=== PATIENT | female | born 1985 | race Caucasian/White ===

== ENCOUNTER 2017-02-02 06:49 | Emergency (ER) | payer MEDICAID, OTHER ==
[~2017-02-02] VITALS: Ht 152.4 cm; Wt 150.0 kg
[~2017-02-02 06:49] MED LIST: ALBU6.7H INH; Z.0.BCPILL PO
[2017-02-02 06:55] VITALS: BP 156/100; PULSE 88; RESP 18; TEMP 99; O2SAT 97
[2017-02-02] MEDS ORDERED: PRED20 PO (07:11)
[2017-02-02] MEDS ORDERED: ZITHTAB PO (07:11)
[2017-02-02] MEDS ORDERED: phenergan w codein PO (07:11)
--- NOTE | 2017-02-02 07:11 | PD ---
HPI Chief Complaint: ENT Complaint Time Seen by Provider: 07:02 Travel History International Travel<30 days: No Contact w/Intl Traveler<30days: No Traveled to known affect area: No History of Present Illness HPI 31-year-old female complains of sore throat coughing congestion. Patient states the symptoms started 2 days ago. Patient states that the cough is persistent and nonproductive. Patient denies any chest pain or shortness of breath. Patient denies any nausea vomiting diarrhea. PFSH Past Medical History Asthma: Yes Cancer: No Diabetes: No Diminished Hearing: No Hepatitis: No Hiatal Hernia: No Hypertension: No Respiratory: Yes (EXERCISE INDUCED-ASTHMA) Immunizations Current: Yes Thyroid Disease: No Influenza Vaccination: No ?: Not : 2 Para: 1 Past Surgical History Oral Surgery: Yes (T & A) Pacemaker: No Tonsillectomy: Yes Social History Alcohol Use: No Tobacco Use: No Substance Use: No Allergies-Medications (Allergen,Severity, Reaction): Coded Allergies: Theophylline (Verified Allergy, Severe, ANAPHYLAXIS FROM THOEDUR SPRINKLES , 02/02/17) Uncoded Allergies: SAVITA SPRINKLES (Allergy, Severe, 04/12/11) Reported Meds & Prescriptions Reported Meds & Active Scripts Active Review of Systems General / Constitutional: No: Fever Eyes: No: Visual changes HENT: Positive: Sore Throat, No: Headaches Cardiovascular: No: Chest Pain or Discomfort Respiratory: Positive: Cough, No: Shortness of Breath Gastrointestinal: No: Abdominal Pain Genitourinary: No: Dysuria Musculoskeletal: No: Pain Skin: No Rash Neurologic: No: Weakness Psychiatric: No: Depression Endocrine: No: Polydipsia Hematologic/Lymphatic: No: Easy Bruising Physical Exam Narrative GENERAL: Well-nourished, well-developed patient. SKIN: Focused skin assessment warm/dry. HEAD: Normocephalic. EYES: No scleral icterus. No injection or drainage. TM: Clear. Throat: Mild erythematous. NECK: Supple, trachea midline. No JVD. Patient has mild anterior cervical lymphadenopathy. No meningismus CARDIOVASCULAR: Regular rate and rhythm without murmurs, gallops, or rubs. RESPIRATORY: Breath sounds equal bilaterally. No accessory muscle use. GASTROINTESTINAL: Abdomen soft, non-tender, nondistended. MUSCULOSKELETAL: No cyanosis, or edema. BACK: Nontender without obvious deformity. No CVA tenderness. Data Data Last Documented VS Vital Signs Date Time Temp Pulse Resp B/P Pulse Ox O2 Delivery O2 Flow Rate FiO2 02/02/17 06:55 99.0 88 18 156/100 97 Room Air MDM Medical Decision Making Medical Screen Exam Complete: Yes Emergency Medical Condition: Yes Differential Diagnosis Differential diagnosis including otitis media, pharyngitis, bronchitis, pneumonia. Narrative Course 31-year-old female complains of sore throat coughing congestion. Diagnosis Primary Impression: Pharyngitis Qualified Code: J02.9 - Pharyngitis, unspecified etiology Additional Impression: Bronchitis Patient Instructions: General Instructions Additional Instructions: Take medications as directed. Tylenol or ibuprofen for fever and aching pain. Follow-up with personal physician. Return if worse. Med/Other Pt SpecificInfo: Prescription(s) given Scripts Prednisone 20 Mg Tab20 Mg PO BID #10 TAB Prov:Papo Palencia MD 02/02/17 [phenergan w codein] No Conflict Check10 Ml PO Q6HR #120 Prov:Papo Palencia MD 02/02/17 Azithromycin (Zithromax Z-Terence)250 Mg Wtly120 Mg PO DIRECTED #1 DSPK 500 MG (2 tabs) day 1, then 1 tab days 2-5. Prov:Papo Palencia MD 02/02/17 Disposition: 01 DISCHARGE HOME Condition: Stable Papo Palencia MD Feb 02, 2017 07:11
== END 2017-02-02 07:23 | disposition home or self-care (01) ==
LOC: PHED 06:49
DX: J40 Bronchitis, not specified as acute or chronic (principal); J45.909 Unspecified asthma, uncomplicated
CPT/HCPCS: 99283

== ENCOUNTER 2017-09-15 22:54 | Inpatient (IN) | payer MEDICAID ==
[~2017-09-15] VITALS: Ht 152.4 cm; Wt 156.6 kg
[~2017-09-15 22:54] MED LIST changes: -ALBU6.7H INH; +PRED20 PO; -Z.0.BCPILL PO; +ZITHTAB PO; +phenergan w codein PO
[2017-09-15 22:57] VITALS: BP 162/92; PULSE 124; RESP 26; TEMP 97.6; O2SAT 100
[2017-09-16] VITALS (9 sets, daily range): BP systolic 139–169; BP diastolic 78–94; PULSE 88–107; RESP 18–25; TEMP 98.3–98.5; O2SAT 97–100
--- NOTE | 2017-09-16 00:13 | PD ---
HPI Chief Complaint: Respiratory Symptoms Time Seen by Provider: 00:12 Travel History International Travel<30 days: No Contact w/Intl Traveler<30days: No Traveled to known affect area: No History of Present Illness HPI 32-year-old female came to the emergency room with history of shortness of breath. Patient says that from 9:30 PM she has been feeling like she cannot catch breath. She is also complaining is of some lower back pain. Patient has history of asthma. Oxygen saturation was 100% on room air. Her to be anxious and in some distress. There is no radiation of the lower back pain. No aggravating or relieving factors. Patient says that earlier when she was in the waiting room she started having some chills. She recently found out that she is . Her last menstrual cycle was July 31. Patient is A0. No history of vaginal discharge or spotting. No history of abdominal cramps. Her bedside blood glucose was 135. PFSH Past Medical History Narrative Medical List of her past medical, surgical, social and family history is reviewed from the nursing note. Asthma: Yes Cancer: No Diabetes: No Diminished Hearing: No Hepatitis: No Hiatal Hernia: No Hypertension: No Respiratory: Yes (EXERCISE INDUCED-ASTHMA) Immunizations Current: Yes Thyroid Disease: No ?: LMP: 07/29/17 : 2 Para: 1 Past Surgical History Oral Surgery: Yes (T & A) Pacemaker: No Tonsillectomy: Yes (T&A) Other Surgery: Yes (LEAP PROCEDURE) Social History Alcohol Use: No Tobacco Use: No Substance Use: No Allergies-Medications (Allergen,Severity, Reaction): Coded Allergies: theophylline (Unverified Allergy, Severe, ANAPHYLAXIS FROM THOEDUR SPRINKLES, 09/16/17) Uncoded Allergies: SAVITA SPRINKLES (Allergy, Severe, 04/12/11) Comments List of her allergies reviewed from the nursing note. Reported Meds & Prescriptions Reported Meds & Active Scripts Active No Active Prescriptions or Reported Medications Narrative Medication List of her home medications reviewed from the nursing note. Review of Systems Except as stated in HPI: all other systems reviewed are Neg Respiratory: Positive: Shortness of Breath Musculoskeletal: Positive: Pain Physical Exam Narrative GENERAL: Morbidly obese, anxious, moderate distress SKIN: Focused skin assessment warm/dry. HEAD: Atraumatic. Normocephalic. EYES: Pupils equal and round. No scleral icterus. No injection or drainage. ENT: No nasal bleeding or discharge. Mucous membranes pink and moist. NECK: Trachea midline. No JVD. CARDIOVASCULAR: Regular rate and rhythm. No murmur appreciated. RESPIRATORY: No accessory muscle use. Clear to auscultation. Breath sounds equal bilaterally. GASTROINTESTINAL: Abdomen soft, non-tender, nondistended. Hepatic and splenic margins not palpable. MUSCULOSKELETAL: No obvious deformities. No clubbing. No cyanosis. No edema. NEUROLOGICAL: Awake and alert. No obvious cranial nerve deficits. Motor grossly within normal limits. Normal speech. PSYCHIATRIC: Appropriate mood and affect; insight and judgment normal. Data Data Last Documented VS Vital Signs Date Time Temp Pulse Resp B/P (MAP) Pulse Ox O2 Delivery O2 Flow Rate FiO2 09/16/17 01:08 102 20 162/78 (106) 98 Room Air 09/15/17 22:57 97.6 Orders Orders Sepsis Workup Initiated (09/16/17 ) Complete Blood Count With Diff (09/16/17 00:20) Comprehensive Metabolic Panel (09/16/17 00:20) Lactic Acid Sepsis Protocol (09/16/17 00:20) Urinalysis - C+S If Indicated (09/16/17 00:20) Blood Culture (09/16/17 00:20) Blood Glucose (09/16/17 00:20) Ecg Monitoring (09/16/17 00:20) Iv Access Insert/Monitor (09/16/17 00:20) Oximetry (09/16/17 00:20) Oxygen Administration (09/16/17 00:20) Urine Culture (09/16/17 00:50) Sodium Chlor 0.9% 1000 Ml Inj (Ns 1000 M (09/16/17 01:30) Ceftriaxone Inj (Rocephin Inj) (09/16/17 01:30) Piperacil-Tazo 4.5 Gm Premix (Zosyn 4.5 (09/16/17 01:45) Vancomycin Inj (Vancomycin Inj) (09/16/17 01:45) Ed Discharge Order (09/16/17 01:48) Admit Order (Ed Use Only) (09/16/17 01:49) Labs Laboratory Tests Test 09/16/17 00:50 White Blood Count 9.8 TH/MM3 Red Blood Count 3.84 MIL/MM3 Hemoglobin 11.7 GM/DL Hematocrit 35.2 % Mean Corpuscular Volume 91.7 FL Mean Corpuscular Hemoglobin 30.5 PG Mean Corpuscular Hemoglobin Concent 33.3 % Red Cell Distribution Width 15.9 % Platelet Count 236 TH/MM3 Mean Platelet Volume 9.6 FL Neutrophils (%) (Auto) 78.8 % Lymphocytes (%) (Auto) 14.8 % Monocytes (%) (Auto) 4.9 % Eosinophils (%) (Auto) 0.5 % Basophils (%) (Auto) 1.0 % Neutrophils # (Auto) 7.7 TH/MM3 Lymphocytes # (Auto) 1.5 TH/MM3 Monocytes # (Auto) 0.5 TH/MM3 Eosinophils # (Auto) 0.0 TH/MM3 Basophils # (Auto) 0.1 TH/MM3 CBC Comment AUTO DIFF Urine Color LIGHT-YELLOW Urine Turbidity HAZY Urine pH 6.5 Urine Specific [place] 1.009 Urine Protein NEG mg/dL Urine Glucose (UA) NEG mg/dL Urine Ketones 10 mg/dL Urine Occult Blood NEG Urine Nitrite NEG Urine Bilirubin NEG Urine Urobilinogen LESS THAN 2.0 MG/DL Urine Leukocyte Esterase LARGE Urine RBC 1 /hpf Urine WBC 14 /hpf Urine Squamous Epithelial Cells 2 /hpf Urine Bacteria RARE /hpf Urine Mucus FEW /lpf Microscopic Urinalysis Comment CATH-CULTURE IND Blood Urea Nitrogen 9 MG/DL Creatinine 0.69 MG/DL Random Glucose 148 MG/DL Total Protein 7.2 GM/DL Albumin 3.1 GM/DL Calcium Level 8.5 MG/DL Alkaline Phosphatase 51 U/L Aspartate Amino Transf (AST/SGOT) 17 U/L Alanine Aminotransferase (ALT/SGPT) 29 U/L Total Bilirubin 0.2 MG/DL Sodium Level 138 MEQ/L Potassium Level 3.3 MEQ/L Chloride Level 104 MEQ/L Carbon Dioxide Level 23.0 MEQ/L Anion Gap 11 MEQ/L Estimat Glomerular Filtration Rate 99 ML/MIN Lactic Acid Level 2.8 mmol/L [facility] Medical Decision Making Medical Screen Exam Complete: Yes Emergency Medical Condition: Yes Medical Record Reviewed: Yes Differential Diagnosis DKA, sepsis, pyelonephritis Narrative Course 1:55 AM blood test results of back and lactic acid is elevated. UA suggestive of UTI. I've given her IV fluid and IV vancomycin and Zosyn. These are compatible with . I spoke with the hospitalist and admitted the patient for sepsis. In my opinion her shortness of breath is secondary to the infection. Her potassium is mildly low and I'll replace it with oral potassium. Critical Care Narrative Aggregate critical care time was 30 minutes. Time to perform other separately billable procedures was not included in the critical care time. My time did not include minutes spent treating any other patients simultaneously or on activities that did not directly contribute to the patient's treatment. The services I provided to this patient were to treat and/or prevent clinically significant deterioration that could result in: Sepsis, sepsis protocol I provided critical care services requiring my management, as noted below: Chart data review, documentation time, medication orders and management, vital sign assessments/reviewing monitor data, ordering and reviewing lab tests, ordering and interpreting/reviewing x-rays and diagnostic studies, care of the patient and discussion of the patient with the admitting physicians. Procedures EKG Prior to Arrival: No Diagnosis Primary Impression: Sepsis Qualified Codes: A41.9 - Sepsis, unspecified organism Additional Impressions: UTI (urinary tract infection) Qualified Codes: N39.0 - Urinary tract infection, site not specified Morbidly obese First trimester Hypokalemia Hyperventilation Admitting Information Admitting Physician Requests: Admit Scripts No Active Prescriptions or Reported Meds Corrine Douglas MD Sep 16, 2017 00:13
[2017-09-16 01:08] LABS: AUTOMATED NEUTROPHIL # 7.7 TH/MM3 (1.8-7.7); BASOPHIL # 0.1 TH/MM3 (0-0.2); EOSINOPHIL % 0.5 % (0.0-4.0); HEMATOCRIT 35.2 % (35.0-46.0); LYMPH % 14.8 % (9.0-44.0); LYMPHOCYTE # 1.5 TH/MM3 (1.0-4.8); MEAN CELL VOLUME 91.7 FL (80.0-100.0); MEAN CORPUSCULAR HEMOGLOBIN 30.5 PG (27.0-34.0); MEAN CORPUSCULAR HGB CONC 33.3 % (32.0-36.0); MONO % 4.9 % (0.0-8.0); NEUT % 78.8 % (16.0-70.0); PLATELET COUNT 236 TH/MM3 (150-450); RED BLOOD COUNT 3.84 MIL/MM3 (4.00-5.30); RED CELL DISTRIBUTION WIDTH 15.9 % (11.6-17.2); WHITE BLOOD COUNT 9.8 TH/MM3 (4.0-11.0)
[2017-09-16 01:12] LABS: BACTERIA, URINE RARE /hpf; BLOOD, URINE NEG (NEG); GLUCOSE,URINE NEG (NEG); KETONE, URINE 10 mg/dL (NEG); MUCUS URINE FEW /lpf (OCC); NITRITE,URINE NEG (NEG); PH, URINE 6.5 (5.0-8.5); SQUAMOUS EPITHELIAL CELL URINE 2 /hpf (0-5); URINE COLOR LIGHT-YELLOW (YELLW/STRAW)
[2017-09-16 01:13] LABS: COMMENT (UR) CATH-CULTURE IND; CULTURE IF INDICATED CATH CULTURE IND
[2017-09-16 01:22] LABS: HEMO FLAGS AUTO DIFF
[2017-09-16 01:26] LABS: ALT (GPT) 29 U/L (10-53); ANION GAP 11 MEQ/L (5-15); AST (GOT) 17 U/L (15-37); BLOOD UREA NITROGEN 9 MG/DL (7-18); CHLORIDE 104 MEQ/L (98-107); GLOMERULAR FILTRATION RATE 99 ML/MIN (>89); POTASSIUM 3.3 MEQ/L (3.5-5.1); SODIUM (NA) 138 MEQ/L (136-145)
[2017-09-16 01:28] LABS: ALKALINE PHOSPHATASE 51 U/L (45-117); TOTAL BILIRUBIN ADULT 0.2 MG/DL (0.2-1.0)
[2017-09-16] MEDS ORDERED: SODIUM CHLOR 0.9% 1000 ML INJ 1,000 ML IV ONE (01:30)
[2017-09-16] MEDS ORDERED: cefTRIAXone INJ 1,000 MG in SODIUM CHLORIDE 0.9% INJ 100 ML IV ONE (01:30)
[2017-09-16] MEDS ORDERED: VANCOMYCIN INJ 1,000 MG in SODIUM CHLOR 0.9% 250 ML INJ 250 ML IV ONE (01:45)
[2017-09-16] MEDS ORDERED: PIPERACIL-TAZO 4.5 GM PREMIX 100 ML IV ONE (01:45)
[2017-09-16] MEDS ORDERED: POTASSIUM CHLORIDE 20 MEQ CONTROLLED RELEASE TAB PO ONE (02:00)
[2017-09-16] MEDS ORDERED: SODIUM CHLORIDE 0.9% FLUSH 10 ML FLUSH IV FLUSH PRN (02:30)
[2017-09-16] MEDS ORDERED: NALOXONE HCL 0.4 MG/ML AMP IV PUSH PRN (02:30)
[2017-09-16] MEDS ORDERED: ACETAMINOPHEN 325 MG TAB PO PRN (02:30)
[2017-09-16 03:00] LABS: LACTIC ACID GHOST NOT REPORTABLE
[2017-09-16 03:38] LABS: BANDS 12 % (0-6); NEUTROPHIL # MANUAL DIFF 8.7 TH/MM3 (1.8-7.7); PLATELET ESTIMATE SMEAR NORMAL (NORMAL); PLATELET MORPHOLOGY ENLARGED (NORMAL); POLYS (SEG NEUTROPHILS) 77 % (16-70); SCAN/DIFF FINAL DIFF MANUAL; TOXIC GRANULATION 1+ (NORMAL); WBC DIFF SAMPLE 100
[2017-09-16] MEDS: SODIUM CHLOR 0.9% 1000 ML INJ 1,000 ML IV SCH (05:33)
--- NOTE | 2017-09-16 07:59 | PD.CONS ---
HPI Travel History International Travel<30 Days: No Contact w/Intl Traveler<30Days: No Known Affected Area: No History of Present Illness HPI The patient is a 32-year-old G3 P 2002 at gestational age of approximately 6 weeks by her last menstrual period of 07/29/17. She reports this is an unplanned and she feels somewhat equivocal based on her health. She states that she desires the as long as it can be safe for her and the baby. The patient presented to the emergency room with a history of shortness of breath. She reports this began on September 09 with mild and intermittent shortness of breath feeling like it was challenging to catch her breath. She reports that her symptoms worsen 2 days ago but actually 9:30 last night she has been had been feeling like she was not able to catch her breath and it was significantly more difficult to breathe. She does have a history of childhood asthma and exercise-induced asthma. She is also complaining of lower back pain that been going on for a week with mild relief with Tylenol. She also reports that she had shakes on her way here but denies any fevers at home. Per the ED record upon patient's arrival her oxygen saturation was 100% on room air. She was noted to be anxious in some distress. At this time the patient denies any significant difficulty in breathing. She denies fevers or chills. She denies vaginal discharge or bleeding. She denies any abdominal pain or cramping. She denies any urinary symptoms, painful urination, urinary frequency, or an odor to her urine. She does report she had a mild upper respiratory infection about 2 weeks ago. She reports she is not yet had an ultrasound to confirm the . 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 The patient denies any sexually transmitted infections Past Surgical History Narrative Surgical T&A LEEP 2011 Family History Narrative Family History DM HTN TIA Pancreatic cancer Social History Alcohol Use: No Tobacco Use: No Substance Abuse: No Allergies-Medications (Allergen,Severity, Reaction): Coded Allergies: theophylline (Unverified Allergy, Severe, ANAPHYLAXIS FROM THOEDUR SPRINKLES, 09/16/17) Uncoded Allergies: SAVITA SPRINKLES (Allergy, Severe, 04/12/11) Home Meds Discontinued Scripts Prednisone (Prednisone) 20 Mg Tab, 20 MG PO BID, #10 TAB Prov:Papo Palencia MD 02/02/17 [phenergan w codein] No Conflict Check, 10 ML PO Q6HR for Cough, #120 Prov:Papo Palencia MD 02/02/17 Azithromycin (Zithromax Z-Terence) 250 Mg Dspk, 250 MG PO DIRECTED for Infection , #1 DSPK 500 MG (2 tabs) day 1, then 1 tab days 2-5. Prov:Papo Palencia MD 02/02/17 Review of Systems Except as stated in HPI: all other systems reviewed are Neg Respiratory: Other (reports shortness of breath upon arrival however denies significant shortness of breath at this time) Musculoskeletal: Other (lower back pain) Physical Exam Vital Signs Date Time Temp Pulse Resp B/P (MAP) Pulse Ox O2 Delivery O2 Flow Rate FiO2 09/16/17 02:58 107 18 148/89 (108) 98 Room Air 09/16/17 01:08 102 20 162/78 (106) 98 Room Air 09/15/17 22:57 97.6 124 26 162/92 (115) 100 Narrative GENERAL: Well-nourished, well-developed patient. SKIN: Warm and dry. HEAD: Normocephalic and atraumatic. EYES: No scleral icterus. No injection or drainage. ENT: No nasal drainage noted. Mucous membranes pink. Airway patent. NECK: Supple, trachea midline. No JVD. CARDIOVASCULAR: Regular rate and rhythm without murmurs, gallops, or rubs. RESPIRATORY: Breath sounds equal bilaterally. No accessory muscle use. No crackles or rales noted BREASTS: Deferred ABDOMEN/GI: Abdomen soft, non-tender, bowel sounds present, no rebound, no guarding . Obese GENITOURINARY: Deferred EXTREMITIES: No cyanosis or edema. BACK: Nontender without obvious deformity. No CVA tenderness. NEUROLOGICAL: Awake and alert. Motor and sensory grossly within normal limits. Five out of 5 muscle strength in all muscle groups. Normal speech. Psychiatric: Grossly normal memory and affect Musculoskeletal: Grossly normal range of motion, gait, muscle strength Data Data Orders Orders Sepsis Workup Initiated (09/16/17 ) Complete Blood Count With Diff (09/16/17 00:20) Comprehensive Metabolic Panel (09/16/17 00:20) Lactic Acid Sepsis Protocol (09/16/17 00:20) Urinalysis - C+S If Indicated (09/16/17 00:20) Blood Culture (09/16/17 00:20) Blood Glucose (09/16/17 00:20) Ecg Monitoring (09/16/17 00:20) Iv Access Insert/Monitor (09/16/17 00:20) Oximetry (09/16/17 00:20) Oxygen Administration (09/16/17 00:20) Urine Culture (09/16/17 00:50) Sodium Chlor 0.9% 1000 Ml Inj (Ns 1000 M (09/16/17 01:30) Ceftriaxone Inj (Rocephin Inj) (09/16/17 01:30) Piperacil-Tazo 4.5 Gm Premix (Zosyn 4.5 (09/16/17 01:45) Vancomycin Inj (Vancomycin Inj) (09/16/17 01:45) Admit Order (Ed Use Only) (09/16/17 01:49) Potassium Chloride (Kcl) (09/16/17 02:00) Admit To Inpatient (09/16/17 ) Vital Signs (Adult) Q4H (09/16/17 02:25) Activity Bed Rest (09/16/17 02:25) Belt Conveyor Drier / Telemetry .CONTINUOUS (09/16/17 02:25) Diet Regular Basic (09/16/17 Breakfast) Sodium Chlor 0.9% 1000 Ml Inj (Ns 1000 M (09/16/17 02:25) Sodium Chloride 0.9% Flush (Ns Flush) (09/16/17 02:30) Sodium Chloride 0.9% Flush (Ns Flush) (09/16/17 09:00) Acetaminophen (Tylenol) (09/16/17 02:30) Basic Metabolic Panel (Bmp) (09/17/17 06:00) Complete Blood Count With Diff (09/17/17 06:00) Scd Bilateral/Knee High SHERRY.BID (09/16/17 02:25) Speedy Bilateral/Knee High SHERRY.QSHIFT (09/16/17 02:25) Naloxone Inj (Narcan Inj) (09/16/17 02:30) Inpatient Certification (09/16/17 ) Lactic Acid Sepsis Protocol (09/16/17 02:28) [place]-Iron Prenat ([place] (09/16/17 09:00) Piperacil-Tazo 3.375 Gm Premix (Zosyn 3. (09/16/17 09:00) Consult Obstetrics (09/16/17 02:34) Physician Name Changes (09/16/17 ) (Hub Use Only)Inp Phy Cons/Ref (09/16/17 ) Us Pelvis Comp W Transvaginal (09/16/17 ) Labs Laboratory Tests Test 09/16/17 00:50 09/16/17 02:55 White Blood Count 9.8 Red Blood Count 3.84 Hemoglobin 11.7 Hematocrit 35.2 Mean Corpuscular Volume 91.7 Mean Corpuscular Hemoglobin 30.5 Mean Corpuscular Hemoglobin Concent 33.3 Red Cell Distribution Width 15.9 Platelet Count 236 Mean Platelet Volume 9.6 Neutrophils (%) (Auto) 78.8 Lymphocytes (%) (Auto) 14.8 Monocytes (%) (Auto) 4.9 Eosinophils (%) (Auto) 0.5 Basophils (%) (Auto) 1.0 Neutrophils # (Auto) 7.7 Lymphocytes # (Auto) 1.5 Monocytes # (Auto) 0.5 Eosinophils # (Auto) 0.0 Basophils # (Auto) 0.1 CBC Comment AUTO DIFF Differential Total Cells Counted 100 Neutrophils % (Manual) 77 Band Neutrophils % 12 Lymphocytes % 8 Monocytes % 3 Neutrophils # (Manual) 8.7 Differential Comment FINAL DIFF MANUAL Toxic Granulation 1+ Platelet Estimate NORMAL Platelet Morphology Comment ENLARGED Urine Color LIGHT-YELLOW Urine Turbidity HAZY Urine pH 6.5 Urine Specific [place] 1.009 Urine Protein NEG Urine Glucose (UA) NEG Urine Ketones 10 Urine Occult Blood NEG Urine Nitrite NEG Urine Bilirubin NEG Urine Urobilinogen LESS THAN 2.0 Urine Leukocyte Esterase LARGE Urine RBC 1 Urine WBC 14 Urine Squamous Epithelial Cells 2 Urine Bacteria RARE Urine Mucus FEW Microscopic Urinalysis Comment CATH-CULTURE IND Blood Urea Nitrogen 9 Creatinine 0.69 Random Glucose 148 Total Protein 7.2 Albumin 3.1 Calcium Level 8.5 Alkaline Phosphatase 51 Aspartate Amino Transf (AST/SGOT) 17 Alanine Aminotransferase (ALT/SGPT) 29 Total Bilirubin 0.2 Sodium Level 138 Potassium Level 3.3 Chloride Level 104 Carbon Dioxide Level 23.0 Anion Gap 11 Estimat Glomerular Filtration Rate 99 Lactic Acid Level 2.8 1.8 Date/Time Source Procedure Growth Status 09/16/17 00:50 Blood Peripheral Aerobic Blood Culture Pending Received 09/16/17 00:50 Blood Peripheral Anaerobic Blood Culture Pending Received 09/16/17 00:50 Urine Catheterized Urine Urine Culture Pending Worksheet [facility] Plan Assessment/plan: 1. Early , unconfirmed by imaging. We'll obtain transvaginal ultrasound to confirm , location, and dating. 2. Suspected pyelonephritis with sepsis: Managed by primary team. Rare bacteria noted on UTI but large leukocyte esterase and white blood cell count. Patient is afebrile, with a normal white blood cell count no evidence of leukocytosis. There is no CVA tenderness on examination. Patient is currently on vancomycin, Rocephin, and Zosyn. Current guidelines for treatment of pyelonephritis in recommend Zosyn 3.375 g IV every 6 hours for severe pyelonephritis other alternatives for severe pyelonephritis included meropenem, ertapenem, or doripenem. Other empiric treatment for nonsevere pyelonephritis would include Rocephin, cefepime, aztreonam, or amp still and gentamicin. Could consider infectious disease consultation for further recommendations if patient's condition is felt to be severe enough to warrant multiple antibiotic therapy. Discussed with patient the risk for acute respiratory distress syndrome as well as later in the risk of an association of pyelonephritis with labor. Would recommend any treatment to include category B medications ideally although category C medications may be used if the potential benefits outweighs the potential risks. Category D medications would not be recommended unless the maternal benefits clearly outweigh the potential teratogenic effects to the fetus. We'll continue to follow with you. 3. History of maternal childhood asthma and exercise-induced asthma 4. Morbid obesity The patient's ED records were reviewed. Thank you for this consultation on this very pleasant lady. We will continue to follow with you. Please call for any issues or concerns as they may arise. Admitting diagnosis: sepsis, UTI Scripts No Active Prescriptions or Reported Hannah Hart MD 15, 2017 07:59
[2017-09-16 08:55] LABS: BETA HCG QUANT 6364 MIU/ML (0-5)
[2017-09-16] MEDS: MULTIVIT/MIN/PREN/FOL AC/IRON PRENATAL TAB PO SCH (09:00)
--- NOTE | 2017-09-16 09:14 | HHI.HP ---
[facility] Service [facility] Primary Care Physician No Primary Care Physician Admission Diagnosis sepsis, UTI Diagnoses: (1) UTI (urinary tract infection) (2) Sepsis (3) First trimester (4) Morbidly obese Chief Complaint: shortness of breath Travel History International Travel<30 Days: No Contact w/Intl Traveler <30 Da: No Traveled to Known Affected Are: No Sepsis Criteria SIRS Criteria (2 or more): Heart rate over 90, RR > 20 or PaCO2 < 32 Sepsis Criteria (SIRS+source): Infect source susp/known Severe Sepsis (+one): Lactate >2 History of Present Illness The patient is a 32 year old female who presented to the emergency department with complaint of dyspnea. She also reports low back pain. She attributed the back pain to prior injury and sciatica, but it has not improved. Denies chest pain, dysuria, nausea, vomiting. She recently found out she was . She has had a positive home test, but has not seen an glazier helper yet. She has not had an ultrasound. She reports her last menstrual period was . Review of Systems Constitutional: DENIES: Fever, Chills, Night Sweats Eyes: DENIES: Blurred vision, Vision loss Ears, nose, mouth, throat: DENIES: Hearing loss Respiratory: COMPLAINS OF: Shortness of breath, DENIES: Cough, Wheezing, Sputum production Cardiovascular: COMPLAINS OF: Dyspnea on Exertion, DENIES: Chest pain, Palpitations, Lower Extremity Edema Gastrointestinal: DENIES: Abdominal pain, Constipation, Diarrhea, Nausea, Vomiting Genitourinary: DENIES: Urinary frequency, Urinary incontinence, Urgency, Hematuria, Dysuria, Nocturia Musculoskeletal: COMPLAINS OF: Back pain, DENIES: Joint pain, Muscle aches Integumentary: DENIES: Pruritus, Rash Hematologic/lymphatic: DENIES: Bruising Neurologic: DENIES: Headache Past Family Social History Past Medical History Asthma Past Surgical History Tonsillectomy LEEP Reported Medications None Allergies: Coded Allergies: theophylline (Unverified Allergy, Severe, ANAPHYLAXIS FROM THOEDUR SPRINKLES, 09/16/17) Uncoded Allergies: SAVITA SPRINKLES (Allergy, Severe, 04/12/11) Family History Diabetes Hypertension Cancer Social History Denies alcohol, tobacco, or illicit drug use. Physical Exam Vital Signs Vital Signs Date Time Temp Pulse Resp B/P (MAP) Pulse Ox O2 Delivery O2 Flow Rate FiO2 09/16/17 07:54 95 18 169/94 (119) 98 Room Air 09/16/17 02:58 107 18 148/89 (108) 98 Room Air 09/16/17 01:08 102 20 162/78 (106) 98 Room Air 09/15/17 22:57 97.6 124 26 162/92 (115) 100 Physical Exam GENERAL: Morbidly obese female in no acute distress. HEENT: Normocephalic, atraumatic. Pupils equal, round and reactive. Extraocular movements intact. No scleral icterus. No injection or drainage. Oropharynx is clear. Mucous membranes are moist. CARDIOVASCULAR: Regular rate and rhythm without murmurs, gallops, or rubs. RESPIRATORY: Clear to auscultation. No wheezes, rales, or rhonchi. Breathing is non-labored. GASTROINTESTINAL: Abdomen soft, non-tender, nondistended. No CVA tenderness. EXTREMITIES: No lower extremity edema. No calf tenderness. PSYCH: Alert and oriented x 3. Laboratory Laboratory Tests Test 09/16/17 00:50 09/16/17 02:55 White Blood Count 9.8 Red Blood Count 3.84 Hemoglobin 11.7 Hematocrit 35.2 Mean Corpuscular Volume 91.7 Mean Corpuscular Hemoglobin 30.5 Mean Corpuscular Hemoglobin Concent 33.3 Red Cell Distribution Width 15.9 Platelet Count 236 Mean Platelet Volume 9.6 Neutrophils (%) (Auto) 78.8 Lymphocytes (%) (Auto) 14.8 Monocytes (%) (Auto) 4.9 Eosinophils (%) (Auto) 0.5 Basophils (%) (Auto) 1.0 Neutrophils # (Auto) 7.7 Lymphocytes # (Auto) 1.5 Monocytes # (Auto) 0.5 Eosinophils # (Auto) 0.0 Basophils # (Auto) 0.1 CBC Comment AUTO DIFF Differential Total Cells Counted 100 Neutrophils % (Manual) 77 Band Neutrophils % 12 Lymphocytes % 8 Monocytes % 3 Neutrophils # (Manual) 8.7 Differential Comment FINAL DIFF MANUAL Toxic Granulation 1+ Platelet Estimate NORMAL Platelet Morphology Comment ENLARGED Urine Color LIGHT-YELLOW Urine Turbidity HAZY Urine pH 6.5 Urine Specific [place] 1.009 Urine Protein NEG Urine Glucose (UA) NEG Urine Ketones 10 Urine Occult Blood NEG Urine Nitrite NEG Urine Bilirubin NEG Urine Urobilinogen LESS THAN 2.0 Urine Leukocyte Esterase LARGE Urine RBC 1 Urine WBC 14 Urine Squamous Epithelial Cells 2 Urine Bacteria RARE Urine Mucus FEW Microscopic Urinalysis Comment CATH-CULTURE IND Blood Urea Nitrogen 9 Creatinine 0.69 Random Glucose 148 Total Protein 7.2 Albumin 3.1 Calcium Level 8.5 Alkaline Phosphatase 51 Aspartate Amino Transf (AST/SGOT) 17 Alanine Aminotransferase (ALT/SGPT) 29 Total Bilirubin 0.2 Sodium Level 138 Potassium Level 3.3 Chloride Level 104 Carbon Dioxide Level 23.0 Anion Gap 11 Estimat Glomerular Filtration Rate 99 Lactic Acid Level 2.8 1.8 Human Chorionic Gonadotropin, Quant [id number] Date/Time Source Procedure Growth Status 09/16/17 00:50 Blood Peripheral Aerobic Blood Culture Pending Received 09/16/17 00:50 Blood Peripheral Anaerobic Blood Culture Pending Received 09/16/17 00:50 Urine Catheterized Urine Urine Culture Pending Worksheet Result Diagram: 09/16/174909/16/1749 Caprini VTE Risk Assessment Caprini VTE Risk Assessment: Mod/High Risk (score >= 2) Caprini Risk Assessment Model Point Value = 1 Point Value = 2 Point Value = 3 Point Value = 5 Age 41-60 Minor surgery BMI > 25 kg/m2 Swollen legs Varicose veins or History of unexplained or recurrent spontaneous Oral contraceptives or hormone replacement Sepsis (< 1 month) Serious lung disease, including pneumonia (< 1 month) Abnormal pulmonary function Acute myocardial infarction Congestive heart failure (< 1 month) History of inflammatory bowel disease Medical patient at bed rest Age 61-74 Arthroscopic surgery Major open surgery (> 45 min) Laparoscopic surgery (> 45 min) Malignancy Confined to bed (> 72 hours) Immobilizing plaster cast Central venous access Age >= 75 History of VTE Family history of VTE Factor V Leiden Prothrombin [id number] Lupus anticoagulant Anticardiolipin antibodies Elevated serum homocysteine Heparin-induced thrombocytopenia Other congenital or acquired thrombophilia Stroke (< 1 month) Elective arthroplasty Hip, pelvis, or leg fracture Acute spinal cord injury (< 1 month) Prophylaxis Regimen Total Risk Factor Score Risk Level Prophylaxis Regimen 0-1 Low Early ambulation 2 Moderate Order ONE of the following: *Sequential Compression Device (SCD) *Heparin 5000 units SQ BID 3-4 Higher Order ONE of the following medications: *Heparin 5000 units SQ TID *Enoxaparin/Lovenox 40 mg SQ daily (WT < 150 kg, CrCl > 30 mL/min) *Enoxaparin/Lovenox 30 mg SQ daily (WT < 150 kg, CrCl > 10-29 mL/min) *Enoxaparin/Lovenox 30 mg SQ BID (WT < 150 kg, CrCl > 30 mL/min) AND/OR *Sequential Compression Device (SCD) 5 or more Highest Order ONE of the following medications: *Heparin 5000 units SQ TID (Preferred with Epidurals) *Enoxaparin/Lovenox 40 mg SQ daily (WT < 150 kg, CrCl > 30 mL/min) *Enoxaparin/Lovenox 30 mg SQ daily (WT < 150 kg, CrCl > 10-29 mL/min) *Enoxaparin/Lovenox 30 mg SQ BID (WT < 150 kg, CrCl > 30 mL/min) AND *Sequential Compression Device (SCD) Assessment and Plan Assessment and Plan 1. Sepsis, UTI, possible pyelonephritis: Continue IV antibiotics, IV fluids. Urine culture is pending. Blood cultures are pending. 2. Early : Appreciate obstetrics recommendations. Ultrasound ordered. Quantitative beta-hCG ordered. vitamin. 3. Asthma: Patient presented with dyspnea, which could be related to infection. Supplemental oxygen as needed. 4. DVT prophylaxis: SCDs, GRANT hose. Problem Qualifiers (1) UTI (urinary tract infection): Qualified Codes: N39.0 - Urinary tract infection, site not specified (2) Sepsis: Qualified Codes: A41.9 - Sepsis, unspecified organism Ashvin Greer MD Sep 16, 2017 09:14
[2017-09-16] MEDS: SODIUM CHLORIDE 0.9% FLUSH 10 ML FLUSH IV FLUSH SCH ×2 (09:54→21:51)
[2017-09-16] MEDS: PIPERACIL-TAZO 3.375 GM PREMIX 50 ML IV SCH ×3 (09:54→21:51)
--- NOTE | 2017-09-16 10:38 | RADRPT ---
EXAM DATE/TIME: 09/16/2017 09:27 [facility] COMPARISON: US PELVIS (QUEST PREG/ECTOPIC) W/TRANSVAG, April 12, 2011, 12:51. INDICATIONS : comfirmation. LAB(S): Beta-hC MEDICAL HISTORY : . Asthma. SURGICAL HISTORY : Tonsillectomy. Adenoidectomy. Leap procedure. ENCOUNTER: Initial ACUITY: 1 day PAIN SCORE: 0/10 LOCATION: Bilateral pelvis MEASUREMENTS: UTERUS: 11.4 x 6.4 x 6.0 cm ENDOMETRIAL STRIPE: 20 mm RIGHT OVARY: 2.3 x 2.4 x 1.8 cm LEFT OVARY: 3.1 x 2.2 x 2.1 cm FREE FLUID: Yes FINDINGS: UTERUS: The examination demonstrates a 0.5 x 0.6 x 0.8 cm fluid collection within the endometrium. There is h ypertrophy of the endometrium. This is felt to represent a gestational sac. This is too small to prov julio accurate dating. No pole or yolk sac is identified. The exam also demonstrates a small hypo echoic area in the endometrial cavity measuring 4.3 x 1.6 x 2.0 cm. This could represent a small amou nt of hemorrhage within the endometrial cavity. RIGHT OVARY: The exam demonstrates a 1.1 x 1.1 x 1.2 cm cystic abnormality in the mid aspect of the ovary. LEFT OVARY: The examination demonstrates a 0.3 x 0.4 x 0.4 cm partially calcified nodule in the left ovary. MISCELLANEOUS: There is a trace amount of free fluid within the pelvis. CONCLUSION: 1. The exam demonstrates what is felt to be a gestational sac within the uterus. This measures 0.5 x 0.6 x 0.8 cm. This is too small to accurately date. No pole is identified. The patient will nee d followup beta and ultrasound as indicated to assess for viability. 2. There is a small amount of fluid within endometrial cavity possibly representing a small amount of hemorrhage. 3. 3 mm calcification in the left ovary. 4. 1.1 x 1.2 cm cyst in the right ovary. German Schneider MD on September 16, 2017 at 10:11 Board Certified Radiologist. This report was verified electronically.
--- NOTE | 2017-09-16 11:19 | HHI.PR ---
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 Linder. Ultrasound showed likely intrauterine gestational sac without pole or yolk sac. Without pole or yolk sac, unable to confirm intrauterine versus ectopic . Thus, we recommend the following: -Repeat ultrasound in a week -Repeat Beta-hCG Quant in 3 days if inpatient or 1 week if outpatient -Treat infection as needed. Treat as if ignoring the except avoid teratogens. Continue IV antibiotics, IV fluids. Urine culture is pending. Blood cultures are pending. -Continue vitamin. d/w Anibal Bowers MD R2 Sep 16, 2017 11:19
[2017-09-16] MEDS ORDERED: CHLORHEXIDINE GLUCONATE 2 % 1 PACK (2 CLOTHS)(extra cloths) TOPICAL PRN ×2 (12:00)
[2017-09-17] VITALS: BP 137/66; PULSE 87; RESP 22; TEMP 97.9; O2SAT 97
[2017-09-17] MEDS: SODIUM CHLOR 0.9% 1000 ML INJ 1,000 ML IV SCH ×3 (01:12→18:34)
[2017-09-17] MEDS: PIPERACIL-TAZO 3.375 GM PREMIX 50 ML IV SCH ×2 (02:56→07:52)
[2017-09-17 04:00] VITALS: BP 131/66; PULSE 90; RESP 24; TEMP 98.1; O2SAT 98
[2017-09-17] MEDS ORDERED: CHLORHEXIDINE GLUCONATE 2 % 1 PACK (2 CLOTHS)(taper/protocol) TOPICAL SCH (04:00)
[2017-09-17] MEDS: MULTIVIT/MIN/PREN/FOL AC/IRON PRENATAL TAB PO SCH (07:53)
[2017-09-17] MEDS: SODIUM CHLORIDE 0.9% FLUSH 10 ML FLUSH IV FLUSH SCH (07:53)
[2017-09-17 08:01] VITALS: BP 143/88; PULSE 88; RESP 18; TEMP 98.4; O2SAT 97
--- NOTE | 2017-09-17 10:13 | HHI.PR ---
Subjective Remarks Follow-up for questionable UTI versus pyelonephritis Patient states she feels a lot better. Denied any abdominal pain or CVA tenderness. Deny any nausea vomiting. She remains afebrile. Looks very comfortable. Objective Vitals Vital Signs Date Time Temp Pulse Resp B/P (MAP) Pulse Ox O2 Delivery O2 Flow Rate FiO2 09/17/17 08:01 98.4 88 18 143/88 (106) 97 09/17/17 04:00 98.1 90 24 131/66 (87) 98 09/17/17 00:00 97.9 87 22 137/66 (89) 97 09/16/17 20:00 98.3 88 22 144/85 (104) 100 09/16/17 16:00 96 09/16/17 15:58 98.5 91 25 139/88 (105) 97 09/16/17 12:00 98 09/16/17 11:23 141/81 (101) I/O 09/16/17 09/16/17 09/16/17 09/17/17 09/17/17 09/17/17 07:00 15:00 23:00 07:00 15:00 23:00 Intake Total 200 ml 1250 ml 996 ml 868 ml Output Total 800 ml 1050 ml Balance 200 ml 1250 ml 196 ml 868 ml -1050 ml Intake IV Total 200 ml 1250 ml 996 ml 868 ml Output Urine Total 800 ml 1050 ml Result Diagram: 09/16/17 0050 09/16/17 0050 Objective Remarks GENERAL: 32-year-old morbidly obese female in no acute distress CARDIOVASCULAR: Regular rate and rhythm without murmurs, gallops, or rubs. RESPIRATORY: Breath sounds equal bilaterally. No accessory muscle use. GASTROINTESTINAL: Abdomen soft, non-tender, nondistended. MUSCULOSKELETAL: No cyanosis, or edema. BACK: Nontender without obvious deformity. No CVA tenderness. Medications and IVs Current Medications Sodium Chloride 1,000 ml @ 999 mls/hr BOLUS ONCE IV Last administered on 02:01; Start 09/16/17 at 01:30; Stop 09/16/17 at 02:30; Status DC Ceftriaxone Sodium 1000 mg/ Sodium Chloride 100 ml @ 200 mls/hr ONCE ONCE IV Last administered on 09/16/17 01:30; Start 09/16/17 at 01:30; Stop 09/16/17 at 01:59; Status DC Piperacillin Sod/ Tazobactam Sod 100 ml @ 200 mls/hr ONCE ONCE IV Last administered on 09/16/17 02:50; Start 09/16/17 at 01:45; Stop 09/16/17 at 02 :14; Status DC Vancomycin HCl 1000 mg/Sodium Chloride 250 ml @ 250 mls/hr ONCE ONCE IV Last administered on 09/16/17 03:49; Start 09/16/17 at 01:45; Stop 09/16/17 at 02 :44; Status DC Potassium Chloride (KCl) 20 meq ONCE ONCE PO Last administered on 09/16/17 02:50; Start 09/16/17 at 02:00; Stop 09/16/17 at 02:01; Status DC Sodium Chloride 1,000 ml @ 100 mls/hr Q10H IV Last administered on 09/17/17 07:53; Start 09/16/17 at 02:25 Sodium Chloride (NS Flush) 2 ml UNSCH PRN IV FLUSH FLUSH AFTER USING IV ACCESS ; Start 09/16/17 at 02:30 Sodium Chloride (NS Flush) 2 ml BID IV FLUSH Last administered on 09/17/17 07 :53; Start 09/16/17 at 09:00 Acetaminophen (Tylenol) 650 mg Q4H PRN PO TEMP > 100.4; Start 09/16/17 at 02: 30 Naloxone HCl (Narcan Inj) 0.4 mg UNSCH PRN IV PUSH SEE LABEL COMMENTS; Start 09/16/17 at 02:30 Prenat Multivit/ [employer]/Iron/Folic Ac (Stuartnatal Plus 3 ) 1 tab DAILY PO Last administered on 09/17/17 07:53; Start 09/16/17 at 09:00 Piperacillin Sod/ Tazobactam Sod 50 ml @ 100 mls/hr Q6H IV Last administered on 09/17/17 07:52; Start 09/16/17 at 09:00 Chlorhexidine Gluconate (Chlorhexidine 2% Cloth) 3 pack DAILY@04 TOPICAL Last administered on 09/17/17 04:00; Start 09/17/17 at 04:00; Stop 09/21/17 at 04 :01 Chlorhexidine Gluconate (Chlorhexidine 2% Cloth) 3 pack UNSCH PRN TOPICAL HYGIENIC CARE; Start 09/16/17 at 12:00; Stop 09/16/17 at 12:00; Status DC Chlorhexidine Gluconate (Chlorhexidine 2% Cloth) 1 pack UNSCH PRN TOPICAL HYGIENIC CARE; Start 09/16/17 at 12:00; Stop 09/21/17 at 11:54 A/P Problem List: (1) UTI (urinary tract infection) ICD Code: N39.0 - Urinary tract infection, site not specified Status: Acute (2) Sepsis ICD Code: A41.9 - Sepsis, unspecified organism Status: Acute (3) First trimester ICD Code: Z34.90 - Encounter for supervision of normal , unspecified, unspecified trimester Status: Acute (4) Morbidly obese ICD Code: E66.01 - Morbid (severe) obesity due to excess calories Status: Acute Assessment and Plan 32-year-old female presented with bilateral lower back pain and urinary symptoms Sepsis, UTI, possible pyelonephritis: - Continue IV antibiotics, IV fluids. Urine culture is pending. Blood cultures are pending. -Patient on Zosyn. -REGIONAL AGRONOMIST recommend infectious disease consult. Will place infectious disease consult. Questionable Early : -Appreciate obstetrics recommendations. -Per Dr. Linder REGIONAL AGRONOMIST ultrasound was reviewed which showed Ultrasound showed likely intrauterine gestational sac without pole or yolk sac. Without pole or yolk sac, unable to confirm intrauterine . She recommended repeat beta-hCG quantitative in 3 days if and patient on 1 week of outpatient. Repeat ultrasound in one week. Asthma: -At the moment asymptomatic. -Patient presented with dyspnea, which could be related to infection. Supplemental oxygen as needed. DVT prophylaxis: SCDs, GRANT hose. Problem Qualifiers (1) UTI (urinary tract infection): Qualified Codes: N39.0 - Urinary tract infection, site not specified (2) Sepsis: Qualified Codes: A41.9 - Sepsis, unspecified organism Yara Trevizo MD Sep 17, 2017 10:13
[2017-09-17 10:31] LABS: AUTOMATED NEUTROPHIL # 6.7 TH/MM3 (1.8-7.7); BASOPHIL # 0.1 TH/MM3 (0-0.2); BASOPHIL % 0.8 % (0.0-2.0); EOSINOPHIL # 0.1 TH/MM3 (0-0.4); EOSINOPHIL % 0.9 % (0.0-4.0); HEMATOCRIT 33.3 % (35.0-46.0); HEMO FLAGS DIFF FINAL; LYMPH % 14.6 % (9.0-44.0); LYMPHOCYTE # 1.2 TH/MM3 (1.0-4.8); MEAN CELL VOLUME 92.3 FL (80.0-100.0); MEAN CORPUSCULAR HEMOGLOBIN 30.9 PG (27.0-34.0); MEAN CORPUSCULAR HGB CONC 33.4 % (32.0-36.0); MONO % 3.9 % (0.0-8.0); NEUT % 79.8 % (16.0-70.0); PLATELET COUNT 199 TH/MM3 (150-450); RED BLOOD COUNT 3.61 MIL/MM3 (4.00-5.30); RED CELL DISTRIBUTION WIDTH 16.2 % (11.6-17.2); WHITE BLOOD COUNT 8.4 TH/MM3 (4.0-11.0)
[2017-09-17 10:49] LABS: BICARBONATE 25.7 MEQ/L (21.0-32.0); POTASSIUM 3.4 MEQ/L (3.5-5.1)
[2017-09-17 12:00] VITALS: BP 141/76; PULSE 99; RESP 20; TEMP 98.6; O2SAT 96
--- NOTE | 2017-09-17 12:12 | PD.CONS ---
History of Present Illness Service infectious disease Consult Requested By Dr Sherrill Trevizo Reason for Consult Evaluate patient with UTI Primary Care Physician No Primary Care Physician Diagnoses: History of Present Illness Patient seen and examined. Records reviewed. Patient is a 32-year-old female, presented to the hospital for evaluation of shortness of breath. She has had on and off problem with shortness of breath probably in the last week. She has known asthma. She is really not coughing or having any sputum production, and denies any chest pain. Patient also has had some low back pain and attributed it to prior problem with sciatica and dyspnea. She has not had any fevers chills or sweats. She denies any urinary complaints as far as frequency, incontinence, hematuria, or any dysuria. Denies any vaginal discharge. Currently she denies any shortness of breath. Her O2 sat when she presented to the emergency room was 100%. She is afebrile. Patient was found to have a urea in her urinalysis with 14 WBC, and large leukocyte esterase. The urine culture is growing 50 200,000 colonies of gram- positive jil. Pelvic ultrasound showed but unable to date the . Her last menstrual period was July 31, 2017. Her hCG is elevated. Patient could not remember whether she had UTI when she was even sleep. She had frequent UTI when she was young. Infectious Disease consultation has been requested to evaluate the patient. Review of Systems Constitutional: DENIES: Fever, Chills Eyes: DENIES: Eye pain Ears, nose, mouth, throat: DENIES: Nasal discharge, Throat pain, Ear Pain, Sinus Pain Respiratory: COMPLAINS OF: Shortness of breath, DENIES: Cough, Sputum production Cardiovascular: DENIES: Chest pain, Syncope Gastrointestinal: COMPLAINS OF: Constipation, DENIES: Diarrhea, Nausea, Vomiting, Difficulty Swallowing Genitourinary: DENIES: Urinary frequency, Urinary incontinence, Urgency, Hematuria, Dysuria Musculoskeletal: COMPLAINS OF: Back pain, DENIES: Joint pain, Joint Swelling Integumentary: DENIES: Breast masses Immunologic/allergic: DENIES: Urticaria Neurologic: DENIES: Headache, Localized weakness Psychiatric: DENIES: Hallucinations Past Family Social History Allergies: Coded Allergies: theophylline (Unverified Allergy, Severe, ANAPHYLAXIS FROM THOEDUR SPRINKLES, 09/16/17) Uncoded Allergies: SAVITA SPRINKLES (Allergy, Severe, 04/12/11) Past Medical History Asthma 2 prior pregnancies, normal delivery Problem with proteinuria during her previous pregnancies Episodes of UTI when she was young Past Surgical History Tonsillectomy LEEP Reported Medications Reported Meds & Active Scripts Active No Active Prescriptions or Reported Medications Active Ordered Medications Current Medications Medications (Trade) Dose Ordered Sig/Brody Route Start Time Stop Time Status Last Admin Sodium Chloride 1,000 ml @ 100 mls/hr Q10H IV 09/16/17 02:25 09/17/17 07:53 (NS Flush) 2 ml UNSCH PRN IV FLUSH 09/16/17 02:30 (NS Flush) 2 ml BID IV FLUSH 09/16/17 09:00 09/17/17 07:53 (Tylenol) 650 mg Q4H PRN PO 09/16/17 02:30 (Narcan Inj) 0.4 mg UNSCH PRN IV PUSH 09/16/17 02:30 (Stuartnatal Plus 3 ) 1 tab DAILY PO 09/16/17 09:00 09/17/17 07:53 Piperacillin Sod/ Tazobactam Sod 50 ml @ 100 mls/hr Q6H IV 09/16/17 09:00 09/17/17 07:52 (Chlorhexidine 2% Cloth) 3 pack DAILY@04 TOPICAL 09/17/17 04:00 09/21/17 04:01 09/17/17 04:00 (Chlorhexidine 2% Cloth) 1 pack UNSCH PRN TOPICAL 09/16/17 12:00 09/21/17 11:54 Family History Hypertension Diabetes Cancer Social History Denies smoking Denies alcohol abuse Denies illicit drugs Has 2 kids ages 10 and 6 Physical Exam Vital Signs Vital Signs Date Time Temp Pulse Resp B/P (MAP) Pulse Ox O2 Delivery O2 Flow Rate FiO2 09/17/17 08:01 98.4 88 18 143/88 (106) 97 09/17/17 04:00 98.1 90 24 131/66 (87) 98 09/17/17 00:00 97.9 87 22 137/66 (89) 97 09/16/17 20:00 98.3 88 22 144/85 (104) 100 09/16/17 16:00 96 09/16/17 15:58 98.5 91 25 139/88 (105) 97 09/16/17 12:00 98 Physical Exam GENERAL: Patient is an obese, well-developed patient, awake and alert, not in respiratory distress. SKIN: Warm and dry. No generalized rash, no ecchymoses and no evidence of embolic lesions. HEAD: Atraumatic. Normocephalic. No temporal wasting, or tenderness. EYES: [place] conjunctiva. No petechia or hemorrhage. Pupils equal, round and reactive to light. Extraocular movements full and intact. No scleral icterus. No injection or drainage. EARS, NOSE AND THROAT: Nose without bleeding or purulent nasal discharge. No sinus tenderness. Mucous membranes pink and moist. No oral lesions noted. No exudate. No oral thrush. NECK: Trachea midline. Supple and not tender, no meningeal signs CARDIOVASCULAR: Regular rate and rhythm. No murmurs, rubs or gallops heard RESPIRATORY: Clear to auscultation. Breath sounds equal bilaterally. No rales , wheezing or rhonchi ABDOMEN: Obese, soft, non-tender, nondistended. Bowel sounds present and normoactive. No guarding. No rebound. No organomegaly. BACK: No CVA tenderness EXTREMITIES: No clubbing, cyanosis, or edema.No joint effusion, has good ROM. No calf tenderness. Well perfused and warm. NEUROLOGICAL: Awake and alert. Cranial nerves grossly intact. Motor grossly within normal limits. PSYCHIATRIC: Normal affect, calm and cooperative. LINE: No evidence of infection Laboratory Laboratory Tests Test 09/17/17 09:03 White Blood Count 8.4 Red Blood Count 3.61 Hemoglobin 11.1 Hematocrit 33.3 Mean Corpuscular Volume 92.3 Mean Corpuscular Hemoglobin 30.9 Mean Corpuscular Hemoglobin Concent 33.4 Red Cell Distribution Width 16.2 Platelet Count 199 Mean Platelet Volume 10.4 Neutrophils (%) (Auto) 79.8 Lymphocytes (%) (Auto) 14.6 Monocytes (%) (Auto) 3.9 Eosinophils (%) (Auto) 0.9 Basophils (%) (Auto) 0.8 Neutrophils # (Auto) 6.7 Lymphocytes # (Auto) 1.2 Monocytes # (Auto) 0.3 Eosinophils # (Auto) 0.1 Basophils # (Auto) 0.1 CBC Comment DIFF FINAL Differential Comment Blood Urea Nitrogen 7 Creatinine 0.68 Random Glucose 143 Calcium Level 8.3 Sodium Level 138 Potassium Level 3.4 Chloride Level 102 Carbon Dioxide Level 25.7 Anion Gap 10 Estimat Glomerular Filtration Rate 100 Date/Time Source Procedure Growth Status 09/16/17 00:50 Blood Peripheral Aerobic Blood Culture - Preliminary NO GROWTH IN 1 DAY Resulted 09/16/17 00:50 Blood Peripheral Anaerobic Blood Culture - Preliminary NO GROWTH IN 1 DAY Resulted 09/16/17 00:50 Urine Catheterized Urine Urine Culture - Final 50-100,000 CFU/ML MIXED JIL... Complete Result Diagram: 09/17/17 0903 09/17/17 0903 Imaging RADIOLOGY STUDIES/FILMS REVIEWED Pelvis Ultrasound 09/16/17 0000 Signed Impressions: Service Date/Time: Saturday, September 16, 2017 09:27 - CONCLUSION: 1. The exam demonstrates what is felt to be a gestational sac within the uterus. This measures 0.5 x 0.6 x 0.8 cm. This is too small to accurately date. No pole is identified. The patient will need followup beta and ultrasound as indicated to assess for viability. 2. There is a small amount of fluid within endometrial cavity possibly representing a small amount of hemorrhage. 3. 3 mm calcification in the left ovary. 4. 1.1 x 1.2 cm cyst in the right ovary. German Schneider MD Assessment and Plan Assessment and Plan IMPRESSION UTI, mild, prob early, no fever, no symptoms, WBC normal, poss early SOB, better, ?due to asthma Obesity RECOMMENDATION IV Rocephin Repeat UA tomorrow Monitor progress Follow C/S US kidneys to complete work-up If stable, and US ok, should be able to D/C on Ceftin I will follow along with you Thank you for this consultation Latosha Strauss MD Sep 17, 2017 12:12
[2017-09-17] MEDS ORDERED: cefTRIAXone INJ 2,000 MG in SODIUM CHLORIDE 0.9% INJ 100 ML IV SCH (13:00)
--- NOTE | 2017-09-17 15:09 | RADRPT ---
EXAM DATE/TIME: 09/17/2017 13:54 [facility] COMPARISON: No previous studies available for comparison. INDICATIONS : Urinary tract infection. MEDICAL HISTORY : Asthma. Dyspnea. Sepsis. UTI. . SURGICAL HISTORY : Tonsillectomy. LEEP. ENCOUNTER: Initial ACUITY: 1 day PAIN SCORE: 0/10 LOCATION: Bilateral flank MEASUREMENTS: RIGHT KIDNEY: 12.6 x 5.4 x 4.8 cm LEFT KIDNEY: 12.4 x 5.8 x 4.9 cm FINDINGS: RIGHT KIDNEY: Renal cortex is normal in thickness and echotexture. No hydronephrosis, stone, or mass. LEFT KIDNEY: Renal cortex is normal in thickness and echotexture. No hydronephrosis, stone, or mass. BLADDER: Within normal limits given the degree of distension. CONCLUSION: Negative exam. Jasper Flores MD on September 17, 2017 at 15:07 Board Certified Radiologist. This report was verified electronically.
[2017-09-17 16:00] VITALS: BP 142/82; PULSE 92; RESP 20; TEMP 98.2; O2SAT 97
[2017-09-17 20:00] VITALS: BP 138/75; PULSE 100; PULSE 96; RESP 22; RESP 24; TEMP 100.4; O2SAT 100; O2SAT 98
[2017-09-18] VITALS: BP 136/64; PULSE 94; RESP 20; TEMP 98.2; O2SAT 97
[2017-09-18 04:00] VITALS: BP 120/58; PULSE 100; RESP 16; TEMP 98.4; O2SAT 97
[2017-09-18 06:26] LABS: HEMATOCRIT 33.7 % (35.0-46.0); MEAN CELL VOLUME 92.9 FL (80.0-100.0); MEAN CORPUSCULAR HEMOGLOBIN 30.9 PG (27.0-34.0); MEAN CORPUSCULAR HGB CONC 33.3 % (32.0-36.0); PLATELET COUNT 184 TH/MM3 (150-450); RED BLOOD COUNT 3.62 MIL/MM3 (4.00-5.30); RED CELL DISTRIBUTION WIDTH 16.5 % (11.6-17.2); REVIEW FLAG FINAL; WHITE BLOOD COUNT 7.7 TH/MM3 (4.0-11.0)
[2017-09-18 06:49] LABS: BICARBONATE 24.5 MEQ/L (21.0-32.0); POTASSIUM 3.4 MEQ/L (3.5-5.1)
[2017-09-18] MEDS: SODIUM CHLOR 0.9% 1000 ML INJ 1,000 ML IV SCH (06:59)
[2017-09-18 08:00] VITALS: BP 137/71; PULSE 99; RESP 19; TEMP 98.3; O2SAT 98
[2017-09-18] MEDS: MULTIVIT/MIN/PREN/FOL AC/IRON PRENATAL TAB PO SCH (08:03)
[2017-09-18] MEDS: SODIUM CHLORIDE 0.9% FLUSH 10 ML FLUSH IV FLUSH SCH (08:03)
[2017-09-18] MEDS ORDERED: PREN29TA PO (11:40)
[2017-09-18] MEDS ORDERED: CEFU1TAB18 PO (11:40)
--- NOTE | 2017-09-18 11:41 | HHI.DCPOC ---
Discharge Care Plan Diagnosis: (1) First trimester (2) UTI (urinary tract infection) Goals to Promote Your Health * To prevent worsening of your condition and complications * To maintain your health at the optimal level Directions to Meet Your Goals Take your medications as prescribed Follow your dietary instruction Follow activity as directed Keep your appointments as scheduled Take your immunizations and boosters as scheduled If your symptoms worsen call your PCP, if no PCP go to Urgent Care Center or Emergency Room Smoking is Dangerous to Your Health. Avoid second hand smoke Call the 24-hour hour crisis hotline for domestic abuse at Yara Trevizo MD Sep 18, 2017 11:41
--- NOTE | 2017-09-18 11:42 | HHI.DS ---
Discharge Summary Admission Date Sep 16, 2017 at 01:53 Discharge Date: Sep 18, 2017 Admitting Diagnosis sepsis, UTI (1) UTI (urinary tract infection) ICD Code: N39.0 - Urinary tract infection, site not specified Diagnosis: Principal Status: Acute (2) First trimester ICD Code: Z34.90 - Encounter for supervision of normal , unspecified, unspecified trimester Diagnosis: Principal Status: Acute (3) Morbidly obese ICD Code: E66.01 - Morbid (severe) obesity due to excess calories Diagnosis: Secondary Status: Acute (4) Lower back pain ICD Code: M54.5 - Low back pain Diagnosis: Secondary Procedures none Brief History - From Admission The patient is a 32 year old female who presented to the emergency department with complaint of dyspnea. She also reports low back pain. She attributed the back pain to prior injury and sciatica, but it has not improved. Denies chest pain, dysuria, nausea, vomiting. She recently found out she was . She has had a positive home test, but has not seen an manager sales training yet. She has not had an ultrasound. She reports her last menstrual period was . CBC/BMP: 09/18/1742809/18/17428 Significant Findings Laboratory Tests Test 09/16/17 00:50 09/16/17 02:55 09/16/17 11:25 09/17/17 09:03 Red Blood Count 3.84 MIL/MM3 (4.00-5.30) 3.61 MIL/MM3 (4.00-5.30) Neutrophils (%) (Auto) 78.8 % (16.0-70.0) 79.8 % (16.0-70.0) Neutrophils % (Manual) 77 % (16-70) Band Neutrophils % 12 % (0-6) Lymphocytes % 8 % (9-44) Neutrophils # (Manual) 8.7 TH/MM3 (1.8-7.7) Toxic Granulation 1+ (NORMAL) Platelet Morphology Comment ENLARGED (NORMAL) Urine Turbidity HAZY (CLEAR) Urine Ketones 10 mg/dL (NEG) Urine Leukocyte Esterase LARGE (NEG) Urine WBC 14 /hpf (0-5) Urine Bacteria RARE /hpf (NONE) Urine Mucus FEW /lpf (OCC) Random Glucose 148 MG/DL (74-106) 143 MG/DL (74-106) Albumin 3.1 GM/DL (3.4-5.0) Potassium Level 3.3 MEQ/L (3.5-5.1) 3.4 MEQ/L (3.5-5.1) Lactic Acid Level 2.8 mmol/L (0.4-2.0) Human Chorionic Gonadotropin, Quant 6364 MIU/ML (0-5) Hemoglobin 11.1 GM/DL (11.6-15.3) Hematocrit 33.3 % (35.0-46.0) Calcium Level 8.3 MG/DL (8.5-10.1) Test 09/18/17 04:29 Red Blood Count 3.62 MIL/MM3 (4.00-5.30) Hemoglobin 11.2 GM/DL (11.6-15.3) Hematocrit 33.7 % (35.0-46.0) Random Glucose 108 MG/DL (74-106) Calcium Level 8.3 MG/DL (8.5-10.1) Potassium Level 3.4 MEQ/L (3.5-5.1) Imaging Last Impressions Renal Ultrasound 09/17/17 0000 Signed Impressions: Service Date/Time: September 13:54 - CONCLUSION: Negative exam. Jasper Flores MD Pelvis Ultrasound 09/16/17 0000 Signed Impressions: Service Date/Time: Saturday, September 16, 2017 09:27 - CONCLUSION: 1. The exam demonstrates what is felt to be a gestational sac within the uterus. This measures 0.5 x 0.6 x 0.8 cm. This is too small to accurately date. No pole is identified. The patient will need followup beta and ultrasound as indicated to assess for viability. 2. There is a small amount of fluid within endometrial cavity possibly representing a small amount of hemorrhage. 3. 3 mm calcification in the left ovary. 4. 1.1 x 1.2 cm cyst in the right ovary. German Schneider MD PE at Discharge GENERAL: 32-year-old morbidly obese female in no acute distress Breast exam symmetrical. No nodules or masses palpated. No nipple discharge. No tenderness to palpation. Negative for any palpable axillary lymph nodes. CARDIOVASCULAR: Regular rate and rhythm without murmurs, gallops, or rubs. RESPIRATORY: Breath sounds equal bilaterally. No accessory muscle use. GASTROINTESTINAL: Abdomen soft, non-tender, nondistended. MUSCULOSKELETAL: No cyanosis, or edema. BACK: Nontender without obvious deformity. No CVA tenderness. Pt update on day of discharge Follow-up for possible UTI Patient denies any shortness of breathing or cough. She remains off of oxygen. Denied any lower back pain. Denied any urinary symptoms. Patient concerned about breast cancer. She stated that the past few months she felt like her lymph nodes and axillary area has gotten bigger. She stated this is intermittent. Patient stated that she wanted to see primary care physician but she has no medical insurance. Patient stated that she will have medical insurance in October. Deny any breast mass or nipple discharge. She stated that she's been more because she has multiple friends who were diagnosed with breast cancer and feels like she may have this. She denies any family history of breast cancer or any type of cancer. spoke to Dr. Suri proctor over the phone in regards to treatment she stated okay for patient be discharged on 10 days of Ceftin 500 mg PO BID. Hospital Course 32-year-old female presented with bilateral lower back pain and urinary symptoms Lower back pain -Patient presented with lower back pain with urinary symptoms in which she was treated for questionable UTI and pyelonephritis. patient had no white count and no fever. Urine cultures and blood culture obtained. Urine cultures were negative and blood cultures were negative. Infectious disease was consulted and stated that if this is a urine tract infection and is mild. She was treated empirically with Zosyn and then upon discharge she was transitioned to Ceftin 500 mg by mouth twice a day for 10 days. Most likely the lower back pain secondary to morbid obesity. Questionable Early : -COOLING PAN TENDER consulted. -Per Dr. Linder COOLING PAN TENDER ultrasound was reviewed which showed Ultrasound showed likely intrauterine gestational sac without pole or yolk sac. Without pole or yolk sac, unable to confirm intrauterine . She recommended repeat beta-hCG quantitative in 3 days if and patient on 1 week of outpatient. Repeat ultrasound in one week. Since patient was discharged before 3 days patient total follow up with COOLING PAN TENDER in 5 days. Asthma: -Patient is asymptomatic. -She stated she intermittently gets dyspneic but she did not require any oxygen and clinically she did not display any shortness of breathing. This may be due to restrictive lung disease secondary to severe morbid obesity. Recommend PFTs as outpatient. Normal breast exam and no palpable axillary lymphs nodes -patient told exam normal but if symptoms continues or worsens she needs to see her PCP for further work. Patient understood. Pt Condition on Discharge: Good Discharge Disposition: Discharge Home Discharge Time: > 30 minutes Discharge Instructions DIET: Follow Instructions for: Low Fat Diet Activities you can perform: Regular-No Restrictions Follow up Referrals: COOLING PAN TENDER - 3-5 Days with Grayson Linder II, MD PCP Follow-up - 1 Week New Medications: Cefuroxime (Ceftin) 250 Mg Tab 500 MG PO BID for infection, #40 TAB 0 Refills 10 days worth Vit-Iron Carbonyl ( Plus Iron 29-1 mg) 29 Mg Iron-1 Mg Tab 1 TAB PO DAILY for , #30 TAB 0 Refills Yara Trevizo MD Sep 18, 2017 11:42
== END 2017-09-18 13:15 | disposition home or self-care (01) | DRG 781 ==
LOC: NEPC 22:54 → NEDA 09-16 01:53 → NEDH 09-16 06:49 → HIMW 09-16 11:00
PROVIDERS: ADMIT Family Medicine; ATTEND Family Medicine
DX: O98.811 Other maternal infectious and parasitic diseases complicating pregnancy, first trimester (principal); A41.9 Sepsis, unspecified organism; Z68.44 Body mass index [BMI] 60.0-69.9, adult; N12 Tubulo-interstitial nephritis, not specified as acute or chronic; E66.01 Morbid (severe) obesity due to excess calories; O23.00 Infections of kidney in pregnancy, unspecified trimester; O99.281 Endocrine, nutritional and metabolic diseases complicating pregnancy, first trimester; O99.511 Diseases of the respiratory system complicating pregnancy, first trimester; J45.909 Unspecified asthma, uncomplicated; O99.211 Obesity complicating pregnancy, first trimester; E87.6 Hypokalemia; Z87.410 Personal history of cervical dysplasia; Z3A.01 Less than 8 weeks gestation of pregnancy
CPT/HCPCS: 76775; 76801; 76817; 80048; 80053; 81001; 83605; 84702; 85007; 85025; 85027; 87040; 87086; 87641; 96365; J0696; J2543; J3370; J7030; J7050

== ENCOUNTER 2017-09-23 15:00 | Emergency (ER) | payer MEDICAID ==
[~2017-09-23] VITALS: Ht 152.4 cm; Wt 159.0 kg
[~2017-09-23 15:00] MED LIST changes: +CEFU1TAB18 PO; -PRED20 PO; +PREN29TA PO; -ZITHTAB PO; -phenergan w codein PO
[2017-09-23 15:02] VITALS: BP 190/78; PULSE 100; RESP 20; TEMP 98.9; O2SAT 99
--- NOTE | 2017-09-23 15:47 | PD ---
HPI Chief Complaint: Related Problem Time Seen by Provider: 15:46 Travel History International Travel<30 days: No Contact w/Intl Traveler<30days: No Traveled to known affect area: No History of Present Illness HPI 32-year-old female patient with recent admission for UTI and sepsis, was found to be , last menstrual period end of July, and patient does not have an SURVEYOR CHAIN HELPER, was told to follow-up in order to check on her , apparently had equivocal findings, and was told to get follow-up lab work and ultrasound. She states that due to insurance issues she has not able to do that. She denies any fevers, vomiting, abdominal pain, or other issues. Modifying Factors: None Associated Signs & Symptoms: Follow-up hCG and ultrasound Risk Factors: Early PFSH Past Medical History Arthritis: No Asthma: Yes Autoimmune Disease: No Anxiety: No Depression: No Heart Rhythm Problems: No Cancer: No Cardiovascular Problems: No High Cholesterol: No Chemotherapy: No Chest Pain: No Congestive Heart Failure: No COPD: No Cerebrovascular Accident: No Diabetes: No Diminished Hearing: No Endocrine: No GERD: No Genitourinary: No Hepatitis: No Hiatal Hernia: No Hypertension: No Immune Disorder: No Kidney Stones: No Musculoskeletal: No Neurologic: No Psychiatric: No Reproductive: No Respiratory: Yes (EXERCISE INDUCED-ASTHMA) Immunizations Current: Yes Migraines: No Radiation Therapy: No Renal Failure: No Seizures: No Sickle Cell Disease: No Sleep Apnea: No Thyroid Disease: No Ulcer: No ?: : 2 Para: 1 Past Surgical History Abdominal Surgery: No AICD: No Arteriovenous Shunt: No Cardiac Surgery: No Ear Surgery: No Endocrine Surgery: No Eye Surgery: No Genitourinary Surgery: No Gynecologic Surgery: No Insulin Pump: No Joint Replacement: No Oral Surgery: Yes (TONSILS) Pacemaker: No Thoracic Surgery: No Tonsillectomy: Yes (T&A) Other Surgery: Yes (LEAP PROCEDURE) Social History Alcohol Use: No Tobacco Use: No Substance Use: No Allergies-Medications (Allergen,Severity, Reaction): Coded Allergies: theophylline (Unverified Allergy, Severe, ANAPHYLAXIS FROM THOEDUR SPRINKLES, 09/16/17) Uncoded Allergies: SAVITA SPRINKLES (Allergy, Severe, 04/12/11) Reported Meds & Prescriptions Reported Meds & Active Scripts Active Ceftin (Cefuroxime Axetil) 250 Mg Tab 500 Mg PO BID 10 days worth Plus Iron 29-1 mg ( Vit-Iron Carbonyl) 29 Mg Iron-1 Mg Tab 1 Tab PO DAILY Review of Systems Except as stated in HPI: all other systems reviewed are Neg Physical Exam Narrative GENERAL: Well-developed obese young female patient currently in no acute distress. SKIN: Focused skin assessment warm/dry. HEAD: Atraumatic. Normocephalic. EYES: Pupils equal and round. No scleral icterus. No injection or drainage. ENT: No nasal bleeding or discharge. Mucous membranes pink and moist. NECK: Trachea midline. No JVD. CARDIOVASCULAR: Regular rate and rhythm. No murmur appreciated. RESPIRATORY: No accessory muscle use. Clear to auscultation. Breath sounds equal bilaterally. GASTROINTESTINAL: Abdomen soft, non-tender, nondistended. Hepatic and splenic margins not palpable. MUSCULOSKELETAL: No obvious deformities. No clubbing. No cyanosis. No edema. NEUROLOGICAL: Awake and alert. No obvious cranial nerve deficits. Motor grossly within normal limits. Normal speech. PSYCHIATRIC: Appropriate mood and affect; insight and judgment normal. Data Data Last Documented VS Vital Signs Date Time Temp Pulse Resp B/P (MAP) Pulse Ox O2 Delivery O2 Flow Rate FiO2 09/23/17 15:02 98.9 100 20 190/78 (115) 99 Room Air Orders Orders Beta Hcg (Quant/Titer) (09/23/17 15:19) Ed Urine Pregnancytest Poc (09/23/17 15:19) Urinalysis - C+S If Indicated (09/23/17 15:19) Us Pelvis (Ques Pr/Ect)W Trans (09/23/17 ) Urine Culture (09/23/17 15:50) Labs Laboratory Tests Test 09/23/17 15:50 Urine Color YELLOW Urine Turbidity HAZY Urine pH 6.5 Urine Specific [place] 1.023 Urine Protein TRACE mg/dL Urine Glucose (UA) NEG mg/dL Urine Ketones NEG mg/dL Urine Occult Blood NEG Urine Nitrite NEG Urine Bilirubin NEG Urine Urobilinogen LESS THAN 2.0 MG/DL Urine Leukocyte Esterase LARGE Urine RBC 15 /hpf Urine WBC 14 /hpf Urine Squamous Epithelial Cells 35 /hpf Urine Amorphous Sediment RARE Urine Mucus FEW /lpf Microscopic Urinalysis Comment CULTURE INDICATED Human Chorionic Gonadotropin, Quant [id number] MIU/ML MDM Medical Decision Making Medical Screen Exam Complete: Yes Emergency Medical Condition: Yes Medical Record Reviewed: Yes Interpretation(s) Laboratory Tests Test 09/23/17 15:50 Urine Turbidity HAZY (CLEAR) Urine Leukocyte Esterase LARGE (NEG) Urine RBC 15 /hpf (0-3) Urine WBC 14 /hpf (0-5) Urine Mucus FEW /lpf (OCC) Human Chorionic Gonadotropin, Quant [id number] MIU/ML (0-5) Differential Diagnosis Early /follow-up ultrasound and lab work: Early versus ectopic Narrative Course Patient's hCG is rising as expected, however her ultrasound is still showing without obvious pole identified. This could represent early versus abnormal versus ectopic . We do not see any signs of obvious ectopic at this time. However, patient will need follow- up with SURVEYOR CHAIN HELPER for further evaluation of beta hCG and ultrasounds. Return for any worsening in abdominal pain, bleeding, or new symptoms as needed. In addition, UA shows leukocytosis of uncertain etiology, I will give her Macrobid considering the . Diagnosis Primary Impression: Early stage of Additional Impression: UTI (urinary tract infection) Referrals: Grayson Linder II, MD Med/Other Pt SpecificInfo: Prescription(s) given Scripts Nitrofurantoin Monohydrate Macrocrystals (Macrobid) 100 Mg Cap 100 MG PO BID for Infection for 7 Days, #14 CAP 0 Refills Prov: Billie Caballero MD 09/23/17 Disposition: 01 DISCHARGE HOME Condition: Stable Billie Caballero MD Sep 23, 2017 15:46
[2017-09-23 16:26] LABS: BLOOD, URINE NEG (NEG); COMMENT (UR) CULTURE INDICATED; CULTURE IF INDICATED CULTURE INDICATED; GLUCOSE,URINE NEG (NEG); KETONE, URINE NEG (NEG); MUCUS URINE FEW /lpf (OCC); NITRITE,URINE NEG (NEG); PH, URINE 6.5 (5.0-8.5); SQUAMOUS EPITHELIAL CELL URINE 35 /hpf (0-5); URINE COLOR YELLOW (YELLW/STRAW)
[2017-09-23 16:50] LABS: BETA HCG QUANT 16483 MIU/ML (0-5)
--- NOTE | 2017-09-23 17:14 | RADRPT ---
EXAM DATE/TIME: 09/23/2017 16:13 [facility] COMPARISON: US PELVIS (QUEST PREG/ECTOPIC) W/TRANSVAG, April 12, 2011, 12:51. INDICATIONS : Ectopic. LAB(S): Beta-hC MEDICAL HISTORY : . Asthma. SURGICAL HISTORY : Tonsillectomy. Adenoidectomy. Leap procedure. ENCOUNTER: Subsequent ACUITY: 1 week PAIN SCORE: 0/10 LOCATION: Bilateral pelvis MEASUREMENTS: UTERUS: 10.0 x 6.3 x 5.9 cm ENDOMETRIAL STRIPE: 15 mm RIGHT OVARY: 3.4 x 2.1 x 2.7 cm LEFT OVARY: 3.3 x 2.4 x 2.2 cm FREE FLUID: No CROWN RUMP LENGTH: 0.9 cm = 6 WKS 4 DAYS FHR: 246 BPM FINDINGS: UTERUS: The myometrium has homogeneous echotexture without mass. There is a hypoechoic collection within the endometrial lining however its somewhat hypoechoic than a normal gestational sac. No well-defined yol k sac or crown-rump length is identified. RIGHT OVARY: Ovary contains no mass or significant cystic lesion.Normal functional cysts. LEFT OVARY: Ovary contains no mass or significant cystic lesion. Normal functional cysts. MISCELLANEOUS: No free fluid. CONCLUSION: There is a endometrial collection in the shape of the gestational sac however is quite hypoechoic ins tead of being anechoic. No crown-rump length or yolk sac is easily identified. Followup images and fo llowup beta is recommended. The study is without evidence of ectopic. Chester Roca MD on September 23, 2017 at 17:11 Board Certified Radiologist. This report was verified electronically.
[2017-09-23] MEDS ORDERED: MACR100C2 PO (17:36)
== END 2017-09-23 18:14 | disposition home or self-care (01) ==
LOC: NEPC 15:00
DX: O23.41 Unspecified infection of urinary tract in pregnancy, first trimester (principal); B96.89 Other specified bacterial agents as the cause of diseases classified elsewhere; Z3A.00 Weeks of gestation of pregnancy not specified
CPT/HCPCS: 76700; 76817; 81001; 84702; 84703; 87086; 99285

== ENCOUNTER → 2018-01-13 | Outpatient (CLI) | payer OTHER ==
[~2018-01-13] MED LIST changes: +MACR100C2 PO
== END ==
LOC: HPND 12:09
PROVIDERS: ATTEND Obstetrics & Gynecology
DX: O24.112 Pre-existing type 2 diabetes mellitus, in pregnancy, second trimester (principal); O99.212 Obesity complicating pregnancy, second trimester; E66.01 Morbid (severe) obesity due to excess calories; Z68.44 Body mass index [BMI] 60.0-69.9, adult
CPT/HCPCS: 76811; 76817; 76825; 76827; 93325

== ENCOUNTER → 2018-02-11 | Outpatient (CLI) | payer OTHER | LOC: HPND 12:49 | PROVIDERS: ATTEND Obstetrics & Gynecology | DX: O99.212 Obesity complicating pregnancy, second trimester (principal); E66.01 Morbid (severe) obesity due to excess calories; Z68.44 Body mass index [BMI] 60.0-69.9, adult; O34.42 Maternal care for other abnormalities of cervix, second trimester; O24.415 Gestational diabetes mellitus in pregnancy, controlled by oral hypoglycemic drugs | CPT/HCPCS: 76816 ==